=== PATIENT | male | born 1955 | race Caucasian/White ===

== ENCOUNTER 2016-11-18 15:58 | Inpatient (IN) | payer OTHER ==
[~2016-11-18] VITALS: Ht 180.3 cm; Wt 81.8 kg
[2016-11-18 19:27] LABS: BASOPHIL % 0.4 % (0-2); PLATELET COUNT 137 x10^3mcL (130-400); RED CELL DISTRIBUTION WIDTH 12.7 % (11.5-14.5)
[2016-11-18 19:39] LABS: CALCIUM 9.1 mg/dL (8.5-10.1); CARBON DIOXIDE 22.1 mmol/L (21-32); CREATININE SERUM 1.9 mg/dL (0.7-1.3); POTASSIUM SERUM 4.7 mmol/L (3.5-5.1)
[2016-11-18 19:44] LABS: BILIRUBIN TOTAL 0.59 mg/dL (0.20-1.00)
[2016-11-18] MEDS ORDERED: ATENOLOL50 MG PO (23:02)
[2016-11-18] MEDS ORDERED: ENALAPRIL MALEA20 MG PO (23:03)
[2016-11-18] MEDS ORDERED: CLONIDINE0.2 M1 PO (23:04)
[2016-11-19] VITALS (9 sets, daily range): BP systolic 144–199; BP diastolic 91–106
[2016-11-19 00:06] LABS: FREE T4 1.62 ng/dL (0.76-1.46); T4(THYROXINE) 10.7 ug/dL (4.7-13.3)
[2016-11-19 00:29] LABS: T3 TOTAL 0.9 ng/mL
[2016-11-19 02:20] LABS: microscopic required? YES; urine erythrocyte TRACE (NEGATIVE)
[2016-11-19 02:38] LABS: AMPHETAMINE QUAL UR NONE DETECTED (NEG <=1000)
[2016-11-19 06:39] LABS: BASOPHIL % 0.4 % (0-2); RED CELL DISTRIBUTION WIDTH 12.9 % (11.5-14.5)
[2016-11-19 06:45] LABS: PLATELET COUNT 115 x10^3mcL (130-400)
[2016-11-19 06:53] LABS: CALCIUM 8.9 mg/dL (8.5-10.1); CARBON DIOXIDE 22.9 mmol/L (21-32); CREATININE SERUM 1.8 mg/dL (0.7-1.3); MAGNESIUM 1.7 mg/dL (1.8-2.4); PHOSPHOROUS 3.3 mg/dL (2.5-4.9); POTASSIUM SERUM 4.8 mmol/L (3.5-5.1)
[2016-11-20] VITALS (11 sets, daily range): BP systolic 168–216; BP diastolic 91–116
[2016-11-20 05:59] LABS: BASOPHIL % 0.3 % (0-2); PLATELET COUNT 139 x10^3mcL (130-400); RED CELL DISTRIBUTION WIDTH 12.8 % (11.5-14.5)
[2016-11-20 06:22] LABS: ALBUMIN 3.7 g/dL (3.4-5.0); CALCIUM 9.1 mg/dL (8.5-10.1); CARBON DIOXIDE 20.1 mmol/L (21-32); CREATININE SERUM 1.8 mg/dL (0.7-1.3); POTASSIUM SERUM 4.7 mmol/L (3.5-5.1)
[2016-11-20] MEDS ORDERED: ATENOLOL100 MG PO (14:57)
[2016-11-20] MEDS ORDERED: LIPI10 PO (14:57)
[2016-11-20] MEDS ORDERED: NOR5 PO (14:58)
[2016-11-20] MEDS ORDERED: HYD25 PO (14:58)
[2016-11-20] MEDS ORDERED: ENALAPRIL MALEA20 MG PO (14:59)
[2016-11-21] VITALS (8 sets, daily range): BP systolic 144–190; BP diastolic 86–98; Ht 180.3 cm; Wt 81.8 kg
[2016-11-22 05:37] VITALS: BP 151/83
[2016-11-22] MEDS ORDERED: HYDRALAZINE HCL25 MG PO (08:53)
[2016-11-22] MEDS ORDERED: NOR10 PO (08:53)
[2016-11-22] MEDS ORDERED: HYDROCHLOROTHIA25 MG PO (08:53)
[2016-11-22] MEDS ORDERED: ENALAPRIL MALEA20 MG PO (08:53)
[2016-11-22] MEDS ORDERED: ATENOLOL100 MG PO (08:53)
[2016-11-22] MEDS ORDERED: LIPI10 PO (08:53)
[2016-11-22] MEDS ORDERED: THERA TABS1 TAB PO (08:57)
[2016-11-22] MEDS ORDERED: ATI1 PO (08:57)
[2016-11-22] MEDS ORDERED: THI100 PO (08:57)
[2016-11-22] MEDS ORDERED: FOL1 PO (08:57)
[2016-11-22 09:05] VITALS: BP 162/94
[2016-11-22 11:36] VITALS: BP 169/99
[2016-11-22 12:15] VITALS: BP 155/90
== END 2016-11-22 13:37 | disposition home or self-care (01) | DRG 77 ==
LOC: ED 15:58 → DU 22:34 → MU 11-22 11:22
PROVIDERS: Specialist; ADMIT Family Medicine
DX: I67.4 Hypertensive encephalopathy (principal); N17.0 Acute kidney failure with tubular necrosis; E78.2 Mixed hyperlipidemia; E83.42 Hypomagnesemia; R31.9 Hematuria, unspecified; D69.6 Thrombocytopenia, unspecified; E66.9 Obesity, unspecified; Z96.643 Presence of artificial hip joint, bilateral; Z53.29 Procedure and treatment not carried out because of patient's decision for other reasons; I51.7 Cardiomegaly; Z68.25 Body mass index [BMI] 25.0-25.9, adult; Z79.899 Other long term (current) drug therapy
CPT/HCPCS: 82962; 83880; 84439; J0360; J3475; J3490; J7030; Q0092

== ENCOUNTER 2017-05-23 10:12 | Emergency (ER) | payer OTHER ==
[~2017-05-23] VITALS: Ht 180.3 cm; Wt 83.9 kg
[~2017-05-23 10:12] MED LIST: ATENOLOL100 MG PO; ATENOLOL50 MG PO; ATI1 PO; CLONIDINE0.2 M1 PO; ENALAPRIL MALEA20 MG PO; FOL1 PO; HYD25 PO; HYDRALAZINE HCL25 MG PO; HYDROCHLOROTHIA25 MG PO; LIPI10 PO; NOR10 PO; NOR5 PO; THERA TABS1 TAB PO; THI100 PO
[2017-05-23 13:14] VITALS: BP 130/65
== END 2017-05-23 13:14 | disposition home or self-care (01) ==
LOC: ED 10:12
DX: M25.561 Pain in right knee (principal); R60.0 Localized edema; M19.90 Unspecified osteoarthritis, unspecified site; Z98.890 Other specified postprocedural states
CPT/HCPCS: J7512